=== PATIENT | female | born 1980 | race Two or more races ===

== ENCOUNTER 2017-07-09 13:55 | Inpatient (IN) | payer MEDICAID ==
[2017-07-09] VITALS (9 sets, daily range): BP systolic 113–142; BP diastolic 68–87
[~2017-07-09] VITALS: Ht 162.6 cm; Wt 70.8 kg
[2017-07-09] MEDS ORDERED: LACT. RINGERS/OXYTOCIN 20UNITS 1,000 ML IV SCH (14:15)
[2017-07-09] MEDS ORDERED: TERBUTALINE SULFATE 1 MG/ML 1ML VIAL SC ONE ×2 (14:15→14:27)
[2017-07-09] MEDS ORDERED: LACTATED RINGER'S 1,000 ML IV SCH (14:15)
[2017-07-09] MEDS ORDERED: PHISODERM TOP SOLN 240ML BTL TOP PRN (14:15)
[2017-07-09] MEDS ORDERED: DERMOPLAST 60ML BOTTLE TOP PRN (14:15)
[2017-07-09] MEDS ORDERED: WITCH HAZEL-GLYCERIN PAD TOP PRN (14:15)
[2017-07-09 14:58] LABS: Eosinophils # (auto) 0.1 uL; Red Blood Cells 4.03 10^6/uL (4.0-5.20); White Blood Cell 9.9 10^3/uL (4.4-10.8)
[2017-07-09 15:00] LABS: Basophils # (auto) 0 uL; Basophils % (auto) 0.3 % (0.0-2.0); Hematocrit 31.5 % (36.0-46.0); Hemoglobin 10.3 g/dL (12.2-16.2); Lymphocytes # (auto) 1.5 uL; Lymphocytes % (auto) 14.7 % (10.0-50.0); Mean Corpuscular Hemoglobin 25.6 pg (28.0-32.0); Mean Corpuscular Hgb Conc. 32.7 g/dL (32.0-36.0); Mean Corpuscular Volume 78.2 fL (80.0-100.0); Monocytes # (auto) 0.3 uL; Monocytes % (auto) 3.2 % (0.0-12.0); Neutrophils % (auto) 80.8 % (37.0-80.0); Platelet Count (auto) 313 10^3/uL (140-450); Red Cell Distribution Width 15.3 % (11.8-14.3)
[2017-07-09 15:09] LABS: INR 0.85 (0.9-1.15); Partial Thromboplastin Time 28.4 sec (22.64-33.71); Prothrombin Time 9.2 sec (9.37-12.3)
[2017-07-09 15:15] LABS: Albumin 2.3 g/dL (3.4-5.0); BUN/Creatinine Ratio 11.9; Calcium 8.2 mg/dL (8.5-10.1); Potassium 3.5 mmol/L (3.5-5.1)
[2017-07-09 15:18] LABS: Bilirubin, Total 0.2 mg/dL (0.2-1.0); Total Protein 6.4 g/dL (6.4-8.2)
[2017-07-09 15:18] LABS: Urine Bacteria FEW /hpf (None Seen); Urine Blood Negative /uL (Negative); Urine Specific Gravity 1.006 (1.001-1.035); Urine WBC 3 /hpf (0 - 5)
[2017-07-09 15:28] LABS: Alcohol, Urine < 3.0 mg/dL (0-5); Amphetamine Screen, Urine NEGATIVE (NEGATIVE); Barbiturate Scree,Urine NEGATIVE (NEGATIVE); Benzodiazephine Screen, Urine NEGATIVE (NEGATIVE); Cannabinoid Screen, Urine NEGATIVE (NEGATIVE); Cocaine Screen, Urine NEGATIVE (NEGATIVE); Opiate Scree,Urine NEGATIVE (NEGATIVE); Phencyclidine Screen, Urine NEGATIVE (NEGATIVE)
[2017-07-09] MEDS: LACTATED RINGER'S 1,000 ML IV SCH (15:30)
[2017-07-09] MEDS ORDERED: diphenhdrAMINE HCL 50 MG/1 ML VL IV PRN (17:00)
[2017-07-09] MEDS ORDERED: ceFAZolin 1GM/50ML 50 ML IV SCH (17:00)
[2017-07-09] MEDS ORDERED: NALOXONE HCL 0.4 MG/ML VIAL IV PRN (17:00)
[2017-07-09] MEDS ORDERED: hydrALAZINE HCL 20 MG/ML VL IV PRN (17:00)
[2017-07-09] MEDS ORDERED: ONDANSETRON HCL 4 MG/2 ML VIAL IV PRN ×2 (17:00)
[2017-07-09] MEDS ORDERED: ONDANSETRON HCL 4 MG/2 ML VIAL IV ONE (17:00)
[2017-07-09] MEDS ORDERED: ePHEDrine SULFATE 50 MG/ML AMP IV PRN (17:00)
[2017-07-09] MEDS ORDERED: MORPHINE SULFATE 4 MG/ML SYR/VIAL IV PRN (17:00)
[2017-07-09] MEDS ORDERED: MORPHINE SULF INJ 2 MG/ML SYRINGE 1ML IV PRN (17:00)
[2017-07-09] MEDS ORDERED: KETOROLAC TROMETH 30 MG/ML 1ML VIAL IV SCH (18:00)
[2017-07-09] MEDS ORDERED: CALC667C PO (19:51)
[2017-07-09] MEDS ORDERED: PREN-96 PO (19:51)
[2017-07-10] VITALS (10 sets, daily range): BP systolic 122–147; BP diastolic 65–93
[2017-07-10] MEDS: LACTATED RINGER'S 1,000 ML IV SCH ×3 (00:52→10:00)
[2017-07-10] MEDS: ceFAZolin 1GM/50ML 50 ML IV SCH ×3 (01:05→17:42)
[2017-07-10] MEDS ORDERED: KETOROLAC TROMETH 30 MG/ML 1ML VIAL IV SCH (01:15)
[2017-07-10 04:10] LABS: RPR Non Reactive (Non Reactive)
[2017-07-10 05:33] LABS: Eosinophils # (auto) 0.1 uL; Hemoglobin 9.1 g/dL (12.2-16.2); Monocytes # (auto) 0.4 uL; Monocytes % (auto) 3.4 % (0.0-12.0); White Blood Cell 11.2 10^3/uL (4.4-10.8)
[2017-07-10 05:35] LABS: Basophils # (auto) 0 uL; Basophils % (auto) 0.4 % (0.0-2.0); Eosinophils % (auto) 0.9 % (0.0-7.0); Hematocrit 27.5 % (36.0-46.0); Lymphocytes # (auto) 1.6 uL; Lymphocytes % (auto) 14.2 % (10.0-50.0); Mean Corpuscular Hemoglobin 25.7 pg (28.0-32.0); Mean Corpuscular Hgb Conc. 33.2 g/dL (32.0-36.0); Mean Corpuscular Volume 77.6 fL (80.0-100.0); Neutrophils % (auto) 81.1 % (37.0-80.0); Platelet Count (auto) 262 10^3/uL (140-450); Red Blood Cells 3.55 10^6/uL (4.0-5.20); Red Cell Distribution Width 15.4 % (11.8-14.3)
[2017-07-10] MEDS: KETOROLAC TROMETH 30 MG/ML 1ML VIAL IV SCH ×2 (09:04→09:43)
[2017-07-10] MEDS ORDERED: TETANUS-DIPTH-ACEL PERTUSSIS 0.5ML SYRG IM ONE (10:00)
[2017-07-10 13:13] LABS: Rubella Antibodies, IgG <0.90 index (Immune >0.99)
[2017-07-10] MEDS ORDERED: SIMETHICONE 80 MG CHEWABLE TABLET PO PRN (13:15)
[2017-07-10] MEDS ORDERED: HYDROcodone-ACET 5/325MG TAB PO PRN ×2 (13:15)
[2017-07-10] MEDS: IBUPROFEN 800 MG TAB PO PRN (14:16)
[2017-07-10] MEDS ORDERED: ACETAMINOPHEN 650 mg PER 20 mL UD PO PRN (14:30)
[2017-07-10] MEDS ORDERED: ACETAMINOPHEN 325 MG TAB PO ONE (17:52)
[2017-07-10] MEDS: DOCUSATE SOD 100 MG CAP PO SCH (21:40)
[2017-07-10] MEDS: ACETAMINOPHEN 325 MG TAB PO PRN (21:40)
[2017-07-11] VITALS (7 sets, daily range): BP systolic 100–152; BP diastolic 65–93
[2017-07-11] MEDS: LACTATED RINGER'S 1,000 ML IV SCH ×2 (00:52→08:52)
[2017-07-11] MEDS: IBUPROFEN 800 MG TAB PO PRN ×3 (03:35→23:20)
[2017-07-11] MEDS: ACETAMINOPHEN 325 MG TAB PO PRN ×2 (10:40→21:33)
[2017-07-11] MEDS: DOCUSATE SOD 100 MG CAP PO SCH ×2 (10:40→21:32)
[2017-07-11] MEDS ORDERED: INFLUENZA QUAD 2017-2018 0.5 ML SYRG IM ONE (14:00)
[2017-07-11] MEDS ORDERED: MEASLES, MUMPS & RUBELLA VAC(MMRII) 0.5ML SC ONE (14:00)
[2017-07-11] MEDS ORDERED: TETANUS-DIPTH-ACEL PERTUSSIS 0.5ML SYRG IM ONE (15:00)
[2017-07-12 03:11] VITALS: BP 131/85
[2017-07-12] MEDS: ACETAMINOPHEN 325 MG TAB PO PRN (03:11)
[2017-07-12 07:00] VITALS: BP 111/77
[2017-07-12] MEDS ORDERED: MEASLES, MUMPS & RUBELLA VAC(MMRII) 0.5ML SC ONE (08:00)
[2017-07-12] MEDS: LACTATED RINGER'S 1,000 ML IV SCH (08:52)
[2017-07-12] MEDS: DOCUSATE SOD 100 MG CAP PO SCH (10:00)
== END 2017-07-12 09:50 | disposition home or self-care (01) | DRG 540 ==
LOC: LDRP 13:55
PROVIDERS: ADMIT Specialist; ATTEND Specialist
PROC: 10D00Z1 Extraction of Products of Conception, Low, Open Approach (ICD-10-PCS; principal; 2017-07-09 15:35)
DX: O34.211 Maternal care for low transverse scar from previous cesarean delivery (principal); Z23 Encounter for immunization; Z37.0 Single live birth; Z3A.38 38 weeks gestation of pregnancy
CPT/HCPCS: 36415; 51702; 59025; 76815; 80053; 80307; 81001; 81002; 85025; 85610; 85730; 86592; 86703; 86762; 86850; 86900; 86901; 87340; 90471; 90472; 90686; 90715; 94762; 96361; 96366; 96372; 96374; J0690; J1885; J2405

== ENCOUNTER 2019-02-04 19:04 | Emergency (ER) | payer MEDICAID, OTHER ==
[~2019-02-04] VITALS: Ht 162.6 cm; Wt 54.4 kg
[~2019-02-04 19:04] MED LIST: CALC667C PO; PREN-96 PO
[2019-02-04 19:54] LABS: Hematocrit 37.9 % (36.0-46.0); Hemoglobin 12.4 g/dL (12.2-16.2); Mean Corpuscular Hgb Conc. 32.7 g/dL (32.0-36.0); Mean Corpuscular Volume 76.5 fL (80.0-100.0); Platelet Count (auto) 301 10^3/uL (140-450); Red Blood Cells 4.95 10^6/uL (4.0-5.20); Red Cell Distribution Width 16.6 % (11.8-14.3); White Blood Cell 21.7 10^3/uL (4.4-10.8)
[2019-02-04 19:57] LABS: Basophils % (manual) 0 (0.0-2.0); Blast Cells 0; Eosinophils % (manual) 0 (0-7); Metamyelocytes % 0; Myelocytes % 0; Promyelocytes % 0; Reactive Lymphocytes 0
[2019-02-04 20:08] LABS: Albumin 3.4 g/dL (3.4-5.0); BUN/Creatinine Ratio 12.1; Potassium 3.5 mmol/L (3.5-5.1)
[2019-02-04 20:11] LABS: Bilirubin, Total 1.5 mg/dL (0.2-1.0); Total Protein 7.7 g/dL (6.4-8.2)
[2019-02-04 20:14] LABS: Band Neutrophils % (manual) 13; Lymphocytes % (manual) 1 (10.0-50.0); Monocytes % (manual) 3 (0-12)
[2019-02-04 20:23] LABS: Urine Bacteria MANY /hpf (None Seen); Urine Blood 2+ /uL (Negative); Urine Specific Gravity 1.022 (1.001-1.035); Urine WBC 677 /hpf (0 - 5)
[2019-02-05] MEDS ORDERED: MORPHINE SULFATE 4 MG/ML SYR/VIAL IV ONE (00:45)
[2019-02-05] MEDS ORDERED: SODIUM CHLORIDE 0.9% 2,000 ML IV ONE (00:45)
[2019-02-05] MEDS ORDERED: cefTRIAXone 1GM/50ML D5W 50 ML IV ONE (00:45)
[2019-02-05] MEDS ORDERED: ONDANSETRON HCL 4 MG/2 ML VIAL IV ONE (00:45)
[2019-02-05] MEDS ORDERED: SODIUM CHLORIDE 0.9% 1,000 ML IV ONE (04:45)
[2019-02-05] MEDS ORDERED: ACETAMINOPHEN/CODEINE#3 (300/30mg) TAB PO ONE (05:30)
[2019-02-05 06:56] VITALS: BP 98/53
== END 2019-02-05 07:38 | disposition home or self-care (01) ==
LOC: ER 19:04
DX: N12 Tubulo-interstitial nephritis, not specified as acute or chronic (principal); N39.0 Urinary tract infection, site not specified; F17.210 Nicotine dependence, cigarettes, uncomplicated; Z79.899 Other long term (current) drug therapy
CPT/HCPCS: 36415; 74176; 80053; 81001; 81025; 83605; 85007; 85027; 87040; 87077; 87086; 87186; 96361; 96365; 99284; J0696; J7030; J2405

== ENCOUNTER 2019-11-17 16:58 | Emergency (ER) | payer OTHER ==
[~2019-11-17] VITALS: Ht 162.6 cm; Wt 45.4 kg
[2019-11-17 18:45] VITALS: BP 107/77
[2019-11-17] MEDS ORDERED: ONDANSETRON ODT 4 MG TAB PO ONE (18:45)
== END 2019-11-17 19:15 | disposition home or self-care (01) ==
LOC: ER 16:58
DX: F15.90 Other stimulant use, unspecified, uncomplicated (principal); R11.2 Nausea with vomiting, unspecified; F17.210 Nicotine dependence, cigarettes, uncomplicated; Z79.899 Other long term (current) drug therapy
CPT/HCPCS: 87635; 99283; Q0162

== ENCOUNTER 2020-04-27 14:48 | Emergency (ER) | payer OTHER ==
[~2020-04-27] VITALS: Ht 162.6 cm; Wt 54.4 kg
[2020-04-27 14:49] VITALS: BP 123/76
[2020-04-27 16:20] LABS: Urine Bacteria NONE SEEN /hpf (None Seen); Urine Blood 3+ /uL (Negative); Urine Budding Yeast MANY /hpf (None Seen); Urine Mucus FEW (None Seen); Urine WBC 464 /hpf (0 - 5); Urine WBC Clumps PRESENT /hpf (None Seen)
[2020-04-27] MEDS ORDERED: cefTRIAXone SOD 1,000 MG VL IM ONE (17:30)
[2020-04-27] MEDS ORDERED: IBUPROFEN 800 MG TAB PO ONE (17:30)
== END 2020-04-27 18:24 | disposition home or self-care (01) ==
LOC: ER 14:48
DX: N39.0 Urinary tract infection, site not specified (principal); N20.0 Calculus of kidney; K80.20 Calculus of gallbladder without cholecystitis without obstruction; E27.8 Other specified disorders of adrenal gland; F17.210 Nicotine dependence, cigarettes, uncomplicated; Z79.899 Other long term (current) drug therapy
CPT/HCPCS: 74176; 81001; 81025; 96372; 99284; J0696

== ENCOUNTER 2023-07-12 14:43 | Observation (INO) | payer MEDICAID, OTHER ==
[2023-07-12 15:58] LABS: Amphetamine Screen, Urine Neg (NEGATIVE)
[2023-07-12 15:59] LABS: Benzodiazephine Screen, Urine Neg (NEGATIVE)
[2023-07-12 16:00] LABS: Barbiturate Scree,Urine Neg (NEGATIVE); Cocaine Screen, Urine Neg (NEGATIVE); Opiate Scree,Urine Neg (NEGATIVE); Phencyclidine Screen, Urine Neg (NEGATIVE)
[2023-07-12 16:01] LABS: Cannabinoid Screen, Urine Neg (NEGATIVE)
== END 2023-07-12 17:05 | disposition home or self-care (01) ==
LOC: UNDOADMOB 14:43 → LDRP 14:43 → UNDODISOB 17:05
PROVIDERS: ADMIT Obstetrics & Gynecology; ATTEND Obstetrics & Gynecology
DX: O47.03 False labor before 37 completed weeks of gestation, third trimester (principal); O34.219 Maternal care for unspecified type scar from previous cesarean delivery; O26.893 Other specified pregnancy related conditions, third trimester; R10.9 Unspecified abdominal pain; Z3A.31 31 weeks gestation of pregnancy; Z87.891 Personal history of nicotine dependence; Z79.899 Other long term (current) drug therapy
CPT/HCPCS: 59025; 76805; 76818; 80307; 81002; G0378